=== PATIENT | female | born 1975 | race African-American/Black ===

== ENCOUNTER 2017-07-06 23:10 | Emergency (ER) | payer OTHER, MEDICAID | END 2017-07-07 00:32 | disposition home or self-care (01) | LOC: ER 07-07 00:32 | DX: N61.1 Abscess of the breast and nipple (principal); E78.00 Pure hypercholesterolemia, unspecified; E11.9 Type 2 diabetes mellitus without complications; F20.9 Schizophrenia, unspecified; I10 Essential (primary) hypertension; G89.29 Other chronic pain; F12.10 Cannabis abuse, uncomplicated; Z88.6 Allergy status to analgesic agent; Z88.8 Allergy status to other drugs, medicaments and biological substances | CPT/HCPCS: 76641; 99284-25 ==

== ENCOUNTER → 2017-09-27 | Outpatient (CLI) | payer OTHER, MEDICAID | END | disposition home or self-care (01) | LOC: US 15:30 | DX: N61.1 Abscess of the breast and nipple (principal); I10 Essential (primary) hypertension; E11.9 Type 2 diabetes mellitus without complications; E78.00 Pure hypercholesterolemia, unspecified | CPT/HCPCS: 76641 ==

== ENCOUNTER 2019-06-09 14:29 | Emergency (ER) | payer MEDICARE, MEDICAID ==
[~2019-06-09] VITALS: Ht 167.6 cm; Wt 99.8 kg
[~2019-06-09 14:29] MED LIST: METF500T3 PO; ONDA4TAB10 SL; RISP1TAB3 PO; SULF1TAB24 PO
[2019-06-09] MEDS ORDERED: DEXAMETHASONE 4 MG TABLET PO STA (15:15)
--- NOTE | 2019-06-09 15:27 | PHYS DOC ---
Past Medical History Past Medical History: Bronchitis, Depression, Diabetes-Type II, High Chol esterol, Hypertension, Schizophrenia, Other Additional Past Medical Histor: CHRONIC BACK PAIN (NIKA OQUENDO APRN) Past Surgical History: Other Additional Past Surgical Histo: BACK (NIKA OQUENDO APRN) Alcohol Use: Occasionally Drug Use: Marijuana (NIKA OQUENDO APRN) Adult General Chief Complaint Chief Complaint: BACK PAIN - NO INJURY HPI HPI Patient is a 44 year old female who presents with left sided back pain for 3 days. Patient also states she's been feeling congestion, runny nose, cough, body aches. The patient states she's been feeling mildly short of breath. She rates her pain as 6 out of 10 in severity and sharp. (NIKA OQUENDO APRN) Review of Systems Review of Systems Constitutional: Reports fever or chills and body aches. Eyes: Denies change in visual acuity, redness, or eye pain [] HENT: Reports nasal congestion and denies sore throat [] Respiratory: Reports cough and denies shortness of breath [] Cardiovascular: No additional information not addressed in HPI [] GI: Denies abdominal pain, nausea, vomiting, bloody stools or diarrhea [] : Denies dysuria or hematuria [] Musculoskeletal: Reports L sided back pain Integument: Denies rash or skin lesions [] Neurologic: Denies headache, focal weakness or sensory changes [] Endocrine: Denies polyuria or polydipsia [] Complete systems were reviewed and found to be within normal limits, except as documented in this note. (NIKA OQUENDO APRN) Current Medications Current Medications Current Medications Medications (Trade) Dose Ordered Sig/Charles Start Time Stop Time Status Last Admin Dose Admin Albuterol/ Ipratropium (Duoneb) 3 ml 1X ONCE 06/09/19 15:30 06/09/19 15:31 DC 06/09/19 15:29 3 ML Dexamethasone (Decadron) 10 mg 1X STAT 06/09/19 15:15 06/09/19 15:20 DC 06/09/19 15:15 10 MG (ARTHUR REYEZ MD) Allergies Allergies Allergies Coded Allergies Type Severity Reaction Last Updated Verified acetaminophen Allergy Intermediate 01/08/16 Yes ibuprofen Allergy Intermediate 01/08/16 Yes risperidone Allergy Intermediate 01/08/16 Yes (ARTHUR REYEZ MD) Physical Exam Physical Exam Constitutional: Well developed, well nourished, no acute distress, non-toxic appearance. [] HENT: Normocephalic, atraumatic, bilateral external ears normal, oropharynx moist, no oral exudates, nose turbinates inflamed. Eyes: PERRLA, EOMI, conjunctiva normal, no discharge. [] Neck: Normal range of motion, no tenderness, supple, no stridor. [] Cardiovascular:Heart rate regular rhythm, no murmur [] Lungs & Thorax: Bilateral breath sounds have diffuse rhonchi. Abdomen: Bowel sounds normal, soft, no tenderness, no masses, no pulsatile masses. [] Skin: Warm, dry, no erythema, no rash. [] Back: L sided lower tenderness, no CVA tenderness. [] Extremities: No tenderness, no cyanosis, no clubbing, ROM intact, no edema. [] Neurologic: Alert and oriented X 3, normal motor function, normal sensory function, no focal deficits noted. [] Psychologic: Affect normal, judgement normal, mood normal. [] (NIKA OQUENDO APRN) Current Patient Data Vital Signs Vital Signs Date Time Temp Pulse Resp B/P (MAP) Pulse Ox O2 Delivery O2 Flow Rate FiO2 06/09/19 15:33 97.8 90 16 127/82 (97) 98 Room Air 97.8 (ARTHUR REYEZ MD) Lab Values Laboratory Tests Test 06/09/19 15:24 Urine Collection Type Unknown Urine Color Yellow Urine Clarity Cloudy Urine pH 6.0 Urine Specific [place] 1.010 Urine Protein Negative mg/dL (NEG-TRACE) Urine Glucose (UA) Negative mg/dL (NEG) Urine Ketones (Stick) Negative mg/dL (NEG) Urine Blood Negative (NEG) Urine Nitrite Negative (NEG) Urine Bilirubin Negative (NEG) Urine Urobilinogen Dipstick 0.2 mg/dL (0.2 mg/dL) Urine Leukocyte Esterase Negative (NEG) Urine RBC 0 /HPF (0-2) Urine WBC 0 /HPF (0-4) Urine Squamous Epithelial Cells Mod /LPF Urine Bacteria 0 /HPF (0-FEW) Urine Mucus Slight /LPF (ARTHUR REYEZ MD) Lab Values Laboratory Tests Test 06/09/19 15:24 Urine Collection Type Unknown Urine Color Yellow Urine Clarity Cloudy Urine pH 6.0 Urine Specific [place] 1.010 Urine Protein Negative mg/dL (NEG-TRACE) Urine Glucose (UA) Negative mg/dL (NEG) Urine Ketones (Stick) Negative mg/dL (NEG) Urine Blood Negative (NEG) Urine Nitrite Negative (NEG) Urine Bilirubin Negative (NEG) Urine Urobilinogen Dipstick 0.2 mg/dL (0.2 mg/dL) Urine Leukocyte Esterase Negative (NEG) Urine RBC 0 /HPF (0-2) Urine WBC 0 /HPF (0-4) Urine Squamous Epithelial Cells Mod /LPF Urine Bacteria 0 /HPF (0-FEW) Urine Mucus Slight /LPF (NIKA OQUENDO APRN) EKG EKG [] (NIKA OQUENDO APRN) Radiology/Procedures Radiology/Procedures [][facility] [address] [place] [address] IMAGING REPORT Signed PATIENT: JENNIFER ABEL NACCOUNT: [id number] : 1975 LOCATION: ER AGE: 44 SEX: F EXAM STATUS: PRE ER ORD. PHYSICIAN: NIKA OQUENDO APRN REASON: cough, fever PROCEDURE: CHEST PA & LATERAL Chest radiograph 06/09/2019 3:15 PM INDICATION: Cough, fever COMPARISON: 10/28/2014 TECHNIQUE: Frontal and lateral views of the chest are provided. FINDINGS: The cardiomediastinal silhouette is within normal limits. There are no pleural effusions. There is no pulmonary vascular congestion. There is no pneumothorax. The lungs are clear. No significant osseous abnormality is identified. IMPRESSION: No acute cardiopulmonary process. Electronically signed by: Dragan Melendez MD (06/09/2019 3:43 PM) [facility] DICTATED and SIGNED BY: DRAGAN MELENDEZ MD DATE: 06/09/19 1543 (NIKA OQUENDO APRN) Course & Med Decision Making Course & Med Decision Making Pertinent Labs and Imaging studies reviewed. (See chart for details) Will get breathing treatment, decadron, Chest x-ray, and UA. Patient is feeling better after breathing treatment, Chest x-ray and UA are unremarkable. The patient appears to have the Flu clinically. Discussed with patient the importance of drinking plenty of fluids. I also discussed the importance of rest. It was discussed with the patient that she is contagious and to stay away from others until it has been a week since the start of her symptoms. Discussed with the patient that she can take Zyrtec per label instructions for runny nose. Also discussed the proper control of fever by rotating Tylenol and Ibuprofen at home. Will give the patient Decadron in the ER for symptom control. (NIKA OQUENDO APRN) Course & Med Decision Making Staff Physician Addendum: I was working in the ER during the course of this patient's visit. I was available for consultation as needed, but I was not directly involved in the care of this patient. (ARTHUR ERYEZ MD) Dragon Disclaimer Dragon Disclaimer This electronic medical record was generated, in whole or in part, using a voice recognition dictation system. (NIKA OQUENDO APRN) Departure Departure Impression: Primary Impression: Viral syndrome Additional Impression: Back pain Disposition: 01 HOME, SELF-CARE Condition: STABLE Referrals: Azeb ARZATE MD (PCP) Patient Instructions: Viral Syndrome Additional Instructions: Thank you for visiting [facility]. We appreciate you trusting us with your care. If any additional problems come up don't hesitate to return to visit us. Please follow up with your primary care provider so they can plan additional care if needed and know about the problem that you had. If symptoms worsen come back to the Emergency Department. Any concerning symptoms that start such as chest pain, shortness of air, weakness or numbness on one side of the body, running high fevers or any other concerning symptoms return to the ER. Please fill your medications at any pharmacy and follow the prescription instructions. Please drink plenty of fluids. If unable to keep fluids down please return to ER. Please get Tylenol and Ibuprofen over the counter. Give each medication every 6 hours as directed by the medication labels. In order to utilize the peak of the medications stagger the medications to where the child is getting one of the medications every 3 hours. For example if you give Ibuprofen at 3 PM, you then give Tylenol at 6 PM and Ibuprofen again at 9 PM, and then Tylenol at midnight. Please get Zyrtec over the counter and take per label instructions for runny nose. Problem Qualifiers Additional Impression: Back pain Back pain location: low back pain Chronicity: acute Back pain laterality: left Sciatica presence: without sciatica Qualified Codes: M54.5 - Low back pain NIKA OQUENDO APRN Jun 09, 2019 15:27 ARTHUR REYEZ MD Jun 10, 2019 09:49
[2019-06-09] MEDS ORDERED: IPRATRPIUM/ALBUTEROL 0.5/2.5MG 3 ML NEBU. NEB ONE (15:30)
[2019-06-09 15:31] LABS: BILIRUBIN,URINE NEGATIVE (NEG); CLARITY,URINE CLOUDY; COLOR,URINE YELLOW; NITRITE,URINE NEGATIVE (NEG); PROTEIN,URINE NEGATIVE (NEG-TRACE); UROBILINOGEN,URINE 0.2 mg/dL (0.2 mg/dL)
[2019-06-09 15:33] VITALS: BP 127/82
--- NOTE | 2019-06-09 15:46 | RAD ---
Chest radiograph 06/09/2019 3:15 PM INDICATION: Cough, fever COMPARISON: 10/28/2014 TECHNIQUE: Frontal and lateral views of the chest are provided. FINDINGS: The cardiomediastinal silhouette is within normal limits. There are no pleural effusions. There is no pulmonary vascular congestion. There is no pneumothorax. The lungs are clear. No significant osseous abnormality is identified. IMPRESSION: No acute cardiopulmonary process. Electronically signed by: Sol Mukherjee MD (06/09/2019 3:43 PM) [place] [id number]
[2019-06-09 15:51] LABS: BACTERIA,URINE 0 /HPF (0-FEW); RBC,URINE 0 /HPF (0-2); SQUAMOUS EPITHELIAL CELL,UR MOD /LPF; WBC,URINE 0 /HPF (0-4)
== END 2019-06-09 16:11 | disposition home or self-care (01) ==
LOC: ER 14:29
DX: B34.9 Viral infection, unspecified (principal); M54.5 Low back pain; G89.29 Other chronic pain; E11.9 Type 2 diabetes mellitus without complications; E78.00 Pure hypercholesterolemia, unspecified; I10 Essential (primary) hypertension; F20.9 Schizophrenia, unspecified; Z88.6 Allergy status to analgesic agent; Z88.8 Allergy status to other drugs, medicaments and biological substances
CPT/HCPCS: 71046; 81001; 94640; 99285; J7620; J8540